=== PATIENT | female | born 1980 | race Caucasian/White ===

== ENCOUNTER 2019-04-20 16:13 | Inpatient (IN) | payer OTHER ==
[~2019-04-20] VITALS: Ht 165.1 cm; Wt 56.0 kg
[2019-04-20] VITALS (7 sets, daily range): BP systolic 100–111; BP diastolic 75–85
[2019-04-20] MEDS: ALBUTEROL SULF 0.083% NEB SOLN 3 ML NEB NEB SCH (00:40)
--- OUTSIDE RECORDS SUMMARY | 2019-04-20 16:17 | XMS REPORT ---
Author Author [facility] Address Unknown Phone Unavailable Care Team Providers Care Inflatable Buildings Laminator Name Role Phone MEKHI SALDIVAR Unavailable Unavailable Problems This patient has no known problems. Allergies, Adverse Reactions, Alerts This patient has no known allergies or adverse reactions. Medications This patient has no known medications. Results Test Description Test Time Test Comments Text Results Atomic Results Result Comments URINALYSIS W/ REFLEX URINE CULTURE 2019-04-08 09:12:00 COLOR (BEAKER) (test qjey=001) Yellow CLARITY (BEAKER) (test khtc=585) Clear SPECIFIC GRAVITY UA (BEAKER) (test wiyq=315) 1.026 1.001-1.035 PH UA (BEAKER) (test qsxx=522) 6.0 5.0-8.0 PROTEIN UA (BEAKER) (test sfqe=279) 10 mg/dL Negative GLUCOSE UA (BEAKER) (test sesp=793) Negative Negative KETONES UA (BEAKER) (test mxvs=369) Negative Negative BILIRUBIN UA (BEAKER) (test wwaw=615) Negative Negative BLOOD UA (BEAKER) (test iskt=808) Negative Negative NITRITE UA (BEAKER) (test pmhv=537) Negative Negative LEUKOCYTE ESTERASE UA (BEAKER) (test eoyz=123) Negative Negative UROBILINOGEN UA (BEAKER) (test zprj=729) 2.0 mg/dL 0.2-1.0 RBC UA (BEAKER) (test iwmk=316) < /HPF WBC UA (BEAKER) (test kmnw=287) < /HPF BACTERIA (BEAKER) (test eohc=042) Rare MUCUS (BEAKER) (test ycfe=2169) Occasional SQUAMOUS EPITHELIAL (BEAKER) (test trpl=755) 5 /HPF SOURCE(BEAKER) (test koqf=8420) Fructose Loader ID - [auto]Fructose Loader ID - hankBASIC METABOLIC [id number] 08:41:00* Test Item Value Reference Range Comments SODIUM (BEAKER) (test doox=945) 139 meq/L 136-145 POTASSIUM (BEAKER) (test qyxg=733) 4.4 meq/L 3.5-5.1 CHLORIDE (BEAKER) (test kzmd=770) 105 meq/L 98-107 CO2 (BEAKER) (test uyty=706) 28 meq/L 22-29 BLOOD UREA NITROGEN (BEAKER) (test wgph=350) 10 mg/dL 7-21 CREATININE (BEAKER) (test foae=877) 0.82 mg/dL 0.57-1.25 GLUCOSE RANDOM (BEAKER) (test kqbs=909) 97 mg/dL 70-105 CALCIUM (BEAKER) (test qjqf=079) 9.5 mg/dL 8.4-10.2 EGFR (BEAKER) (test dbkk=1795) INSUFFICIENT CLINICAL DATA TO CALCULATE ESTIMATED GFR. Fructose Loader ID Fede REINOSO [id number] 08:39:00* Test Item Value Reference Range Comments LIPASE (BEAKER) (test ksia=596) 9 U/L 8-78 Fructose Loader ID Fede REINOSO LHEPATIC FUNCTION [id number] 08:39:00* Test Item Value Reference Range Comments TOTAL PROTEIN (BEAKER) (test nzjp=796) 7.8 gm/dL 6.0-8.3 ALBUMIN (BEAKER) (test lysc=2512) 4.7 g/dL 3.5-5.0 BILIRUBIN TOTAL (BEAKER) (test naii=490) 0.7 mg/dL 0.2-1.2 BILIRUBIN DIRECT (BEAKER) (test rgjc=785) 0.3 mg/dL 0.1-0.5 ALKALINE PHOSPHATASE (BEAKER) (test rmly=612) 45 U/L 40-150 AST (SGOT) (BEAKER) (test hbwg=585) 17 U/L 5-34 ALT (SGPT) (BEAKER) (test mkzn=394) 16 U/L 6-55 Fructose Loader ID - KEMAR LPREGNANCY SCREEN, [id number] 08:37:00* Test Item Value Reference Range Comments TEST URINE (BEAKER) (test ltgo=107) Negative CBC W/PLT COUNT & AUTO [id number] 08:17:00* Test Item Value Reference Range Comments WHITE BLOOD CELL COUNT (BEAKER) (test oxjo=208) 4.9 K/ L 3.5-10.5 RED BLOOD CELL COUNT (BEAKER) (test lzks=638) 4.25 M/ L 3.93-5.22 HEMOGLOBIN (BEAKER) (test ddnr=403) 13.6 GM/DL 11.2-15.7 HEMATOCRIT (BEAKER) (test geid=698) 39.4 % 34.1-44.9 MEAN CORPUSCULAR VOLUME (BEAKER) (test urju=388) 92.7 fL 79.4-94.8 MEAN CORPUSCULAR HEMOGLOBIN (BEAKER) (test lbyr=798) 32.0 pg 25.6-32.2 MEAN CORPUSCULAR HEMOGLOBIN CONC (BEAKER) (test taen=044) 34.5 GM/DL 32.2-35.5 RED CELL DISTRIBUTION WIDTH (BEAKER) (test sgug=545) 12.2 % 11.7-14.4 PLATELET COUNT (BEAKER) (test pooe=991) 182 K/CU MM 150-450 MEAN PLATELET VOLUME (BEAKER) (test hfup=112) 10.4 fL 9.4-12.3 NUCLEATED RED BLOOD CELLS (BEAKER) (test qfxs=082) 0 /100 WBC 0-0 NEUTROPHILS RELATIVE PERCENT (BEAKER) (test axxj=313) 74 % LYMPHOCYTES RELATIVE PERCENT (BEAKER) (test eurt=828) 18 % MONOCYTES RELATIVE PERCENT (BEAKER) (test tpkf=905) 7 % EOSINOPHILS RELATIVE PERCENT (BEAKER) (test fudz=116) 0 % BASOPHILS RELATIVE PERCENT (BEAKER) (test nnaw=116) 0 % NEUTROPHILS ABSOLUTE COUNT (BEAKER) (test stlv=512) 3.66 K/ L 1.56-6.13 LYMPHOCYTES ABSOLUTE COUNT (BEAKER) (test ieki=506) 0.88 K/ L 1.18-3.74 MONOCYTES ABSOLUTE COUNT (BEAKER) (test uvpm=055) 0.32 K/ L 0.24-0.36 EOSINOPHILS ABSOLUTE COUNT (BEAKER) (test vvmy=577) 0.02 K/ L 0.04-0.36 BASOPHILS ABSOLUTE COUNT (BEAKER) (test amzx=700) 0.02 K/ L 0.01-0.08 IMMATURE GRANULOCYTES-RELATIVE PERCENT (BEAKER) (test tuqo=0697) 1 % 0-1
[2019-04-20] MEDS ORDERED: KETOROLAC TROMETHAMINE 30 MG/ML VIAL ONE (16:50)
[2019-04-20] MEDS ORDERED: LACTATED RINGER'S 1,000 ML ONE (16:50)
[2019-04-20] MEDS ORDERED: FAMOTIDINE 20 MG/2 ML VIAL IV STA (16:53)
[2019-04-20] MEDS ORDERED: ONDANSETRON HCL INJ 2MG/ML 2ML 2 MG/ML VIAL IV STA (16:53)
[2019-04-20] MEDS ORDERED: KETOROLAC TROMETHAMINE 30 MG/ML VIAL IV STA (16:53)
[2019-04-20] MEDS ORDERED: LACTATED RINGER'S 1,000 ML IV ONE (17:00)
[2019-04-20] MEDS ORDERED: AZITHROMYCIN 500MG/NS 250 ML 250 ML IV ONE (17:00)
[2019-04-20] MEDS ORDERED: CEFTRIAXONE SOD 2 GM/NS 100 ML 100 ML IV ONE (17:00)
[2019-04-20] MEDS ORDERED: ALBUTEROL/IPRATROPIUM 3 ML NEB NEB ONE (17:15)
[2019-04-20] MEDS ORDERED: ALBUTEROL/IPRATROPIUM 3 ML NEB ONE (17:15)
--- NOTE | 2019-04-20 17:25 | NUR ---
PT TO BE ADMITTED TO ICU AND TRANSFERED, PT AND FAMILY AWARE OF POC, PT VOICES NO COMPLAINTS AT THIS TIME, DR VICK HERE AND AT BEDSIDE FOR ADMISSION ORDERS,
--- NOTE | 2019-04-20 17:28 | Diagnostic Imaging Report ---
EXAMINATION: CXR 2 VIEW - HOPD INDICATION: Pneumonia COMPARISON: None FINDINGS: LINES/TUBES:None LUNGS:Right upper lobe patchy airspace opacity. The lungs are otherwise well inflated. PLEURA:No pleural effusion or pneumothorax. MEDIASTINUM:The cardiomediastinal silhouette appears normal in size and shape. BONES/SOFT TISSUES:No acute osseous injury. ABDOMEN:No free air under the diaphragm. IMPRESSION: Right upper lobe pneumonia. Signed by: Savi Mcbride MD on 04/20/2019 5:25 PM
[2019-04-20] MEDS ORDERED: CEFTRIAXONE SOD 1 GM/NS 50 ML 50 ML IV SCH (17:30)
--- NOTE | 2019-04-20 17:39 | NUR ---
[facility] CALLED FOR TRANSPORT WAIT TIME [address] [facility] FOR TRANSPORT 20MIN ETA
[2019-04-20] MEDS ORDERED: LEVOFLOXACIN 750MG/D5W 150ML 150 ML IV SCH (18:00)
--- NOTE | 2019-04-20 18:00 | NUR ---
REPORT TO SOLOMON STRATTON REPORT TO [facility] ALL QUESTIONS ANSWERED
--- NOTE | 2019-04-20 18:28 | History and Physical ---
CHIEF COMPLAINT: "I can't breathe." HISTORY OF PRESENT ILLNESS: This is a 38-year-old white woman, who presents to [facility] with a 3-day history of worsening cough and chest congestion. The patient states that on April 17, 2019, she went to a local urgent care and was diagnosed with influenza and was subsequently prescribed oral Tamiflu. The patient states that she began taking the Tamiflu immediately. Yesterday, one day prior to admission, on Friday, April 19, 2019, she went to another local emergency room and was told she had right-sided pneumonia, was started on oral antibiotics. The patient states the antibiotic was cefdinir. The patient states her shortness of breath, cough, and congestion only worsened, thus she came to [facility] emergency room today. In the emergency room, the patient was found to be tachycardic with heart rate of 130, temperature 104 degrees Fahrenheit taken orally. The patient's respiratory rate was 22. Blood pressure was 122/82. Oxygen saturation was 100% on room air. The patient had a chest film in the emergency room that did confirm right upper lobe pneumonia. Blood work was unremarkable, particularly white blood cell count was normal. Potassium was low at 3.5. The patient was admitted for further evaluation and treatment. Also in the emergency room patient's nasal swab was found to be Influenza B positive. REVIEW OF SYSTEMS: GENERAL: No fever or chills over the past few days. The patient's weight was stable. HEENT: No headaches. No visual changes. CARDIOVASCULAR/RESPIRATORY: Worsening shortness of breath, cough, and chest congestion over the past few days. GI: No nausea, vomiting, diarrhea, or constipation. : No UTI symptoms. NEUROMUSCULAR: No limb weakness or numbness, but the patient states that she has experienced Raynaud's in her hands intermittently over the last 2 years. The patient also states over the past 2 years she has had a rash on her hands. PAST MEDICAL HISTORY: 1. Persistent hand rash. 2. Raynaud's syndrome. HEALTH SERVICES DIRECTOR HISTORY: G3, P3. Her last was complicated by post shock because corticosteroids were not continued. PAST SURGICAL HISTORY: 1. section. 2. Appendectomy. 3. Left palm surgery to repair deep laceration. ALLERGIES: 1. CLARITHROMYCIN. FAMILY HISTORY: Noncontributory (no family history of connective tissue or rheumatologic diseases) . SOCIAL HISTORY: This woman is , lives with her . She has three small children. 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 No history of tobacco use. MEDICATIONS: None. PHYSICAL EXAMINATION: GENERAL: She is awake and fully oriented. She is slightly dyspneic, but does not appear to be in any obvious respiratory distress. VITAL SIGNS: Heart rate now is 110, respiratory rate is 22, oxygen saturation 97% on room air, temperature is 101.5 at this time. Blood pressure was 130/80. Height is 5 feet 5 inches, weight is 120 pounds, BMI 20. INTEGUMENT: Skin is warm and dry. No pallor, jaundice, diaphoresis. HEENT: Anicteric sclerae. Dry mucous membranes. NECK: Supple. CARDIOVASCULAR: Tachycardic rate, regular rhythm. LUNGS: The patient has coarse breath sounds bilaterally. ABDOMEN: Benign. Normal bowel sounds. Nontender. EXTREMITIES: No edema or deformity. The patient does have an erythematous rash on her hands. She also has whitish discoloration with alternating erythema on her fingers that does resemble Raynaud's syndrome. NEUROLOGIC: Intact. No gross deficits appreciated. DIAGNOSES: 1. Sepsis secondary to right-sided pneumonia. 2. Influenza B infection. 3. Raynaud syndrome, possible underlying connective tissue disease. PLAN: 1. Intravenous fluids. 2. Antipyretics. 3. Nebulized bronchodilators. 4. Blood cultures. 5. Intravenous antibiotics. 6. Tamiflu twice a day. 7. Admit to intensive care unit. 8. We will consult dumb waiter operator. I spent 45 minutes in the care of this intensive care unit patient. MD MILLICENT Cardona/AMNA /[id number] FIONA
[2019-04-20] MEDS: OSELTAMIVIR PHOSPHATE 75 MG CAP PO SCH (18:30)
[2019-04-20] MEDS: CEFTRIAXONE SOD 1 GM/NS 50 ML 50 ML IV SCH (18:30)
[2019-04-20] MEDS: SODIUM CHLORIDE 0.9% 1000ML 1,000 ML IV SCH (18:30)
[2019-04-20] MEDS ORDERED: ALBUTEROL/IPRATROPIUM 3 ML NEB NEB SCH (19:00)
[2019-04-20] MEDS ORDERED: ACETAMINOPHEN 325 MG TAB PO PRN ×3 (20:30→22:00)
[2019-04-20 21:26] LABS: CREATINE KINASE 99 IU/L (29-168)
--- NOTE | 2019-04-20 21:40 | NUR ---
Dr. Kalpesh skinner. aware of elevated HR, temp, and pt condition. Orders received.
[2019-04-20] MEDS: BENZONATATE 100 MG CAP PO SCH (22:21)
[2019-04-20] MEDS: VANCOMYCIN 1GM/NS 250 ML 250 ML IV SCH (23:08)
[2019-04-21] VITALS (21 sets, daily range): BP systolic 88–112; BP diastolic 70–87
[2019-04-21] MEDS ORDERED: DOXYCYCLINE 100MG/NS 100ML 100 ML IV SCH
[2019-04-21] MEDS: SODIUM CHLORIDE 0.9% 1000ML 1,000 ML IV SCH ×2 (01:41→08:00)
--- NOTE | 2019-04-21 03:20 | Consultation ---
DATE OF CONSULTATION: Pulmonary Consultation REASON FOR CONSULT: Shortness of breath. HISTORY OF PRESENT ILLNESS: Ms. Chu is a 38-year-old white female. She presented to the emergency room with a history of cough, fever, shortness of breath, fever as high as 103 since April 17, 2019. The patient went to Emergency Room twice and first time she was diagnosed with flu, was given Tamiflu, 2nd time she was given cefdinir for pneumonia. However, things got worse. Her fever never broke, so she decided to come to the emergency room. In the emergency room, she was tachycardic with a heart rate of 130s, temperature 104, and blood pressure 122/82. She is on oxygen, however, on room air, she is saturating 100%. She denies any complaints of chest pain, nausea, vomiting. No recent travel. REVIEW OF SYSTEMS: GENERAL: Denies fevers or chills. HEAD: Denies any head trauma. ENT: Denies any earache. CVS: Denies any chest pain. RESPIRATORY: Shortness of breath. GI: Denies any nausea or vomiting. The rest of the review of systems are negative except as in HPI. PAST MEDICAL HISTORY: There is a rash and question of Raynaud's, however she is not formally diagnosed. FAMILY AND SOCIAL HISTORY: She does not smoke, does not drink. She is . PHYSICAL EXAMINATION: VITAL SIGNS: T-max of 101.5, pulse of 100, blood pressure 105/80, respiratory rate of 18, and O2 saturation 98% on room air. HEENT: Head atraumatic, normocephalic. NECK: Supple. CHEST: Crackles on the base, otherwise clear. HEART: S1, S2 audible. ABDOMEN: Soft. EXTREMITIES: No pedal edema. NEUROLOGICALLY: She is awake and alert. No focal neurologic deficit. LABORATORY DATA: White count of 6.1, hemoglobin 12.9. Sodium 135, potassium 3.6, chloride 97, BUN 8, creatinine 0.5. Chest x-ray, I reviewed the images which showing right upper lobe pneumonia and I have reviewed the images. ASSESSMENT: Ms. Chu is a 38-year-old female, came in with sepsis due to pneumonia, post influenza. Current problem: 1. Post influenza pneumonia. 2. Influenza. 3. Acute hypoxic. 4. Sepsis. PLAN: I will add vancomycin to IV Rocephin and change the Levaquin to doxycycline for atypical coverage. Post influenza, patient can be prone to staph pneumonia. Oxygen as needed to keep the O2 saturation more than or equal to 92%. The patient is receiving IV fluids. Symptomatic treatment for fever. I will also do a CT chest without contrast to further evaluate the lung parenchyma. Thank you for this consult. Critical care time spent 50 minutes. MD WILL Franco/MODL /[id number]
[2019-04-21] MEDS: ALBUTEROL SULF 0.083% NEB SOLN 3 ML NEB NEB SCH ×5 (03:50→19:05)
[2019-04-21] MEDS: CEFTRIAXONE SOD 1 GM/NS 50 ML 50 ML IV SCH ×2 (05:00→17:06)
[2019-04-21 05:14] LABS: HEMATOCRIT 31.4 % (34.2-44.1); HEMOGLOBIN 11.1 g/dL (12.0-16.0); LYMPHOCYTES # (AUTO) 0.7 (1.0-3.2); LYMPHOCYTES % 15.9 % (18.0-39.1); MEAN CORPUSCULAR HEMOGLOBIN 31.6 pg (28-32); MEAN CORPUSCULAR HGB CONC 35.4 g/dL (31-35); MEAN CORPUSCULAR VOLUME 89.5 fL (81-99); MONOCYTES # (AUTO) 0.3 (0.2-0.8); MONOCYTES % 7.7 % (4.4-11.3); NEUTROPHILS # (AUTO) 3.3 (2.1-6.9); NEUTROPHILS % 75.9 % (38.7-80.0); PLATELET COUNT 104 x10e3/uL (140-360); RED BLOOD COUNT 3.51 x10e6/uL (3.6-5.1)
[2019-04-21 05:28] LABS: CREATINE KINASE 187 IU/L (29-168)
[2019-04-21 05:55] LABS: ALANINE AMINOTRANSFERASE 21 IU/L (0-55); ALBUMIN 3.3 g/dL (3.5-5.0); ALKALINE PHOSPHATASE 47 IU/L (40-150); ANION GAP 13.4 mmol/L (8-16); BLOOD UREA NITROGEN 5 mg/dL (7-26); BUN/CREATININE RATIO 7 (6-25); CALCIUM 8.1 mg/dL (8.4-10.2); CARBON DIOXIDE 22 mmol/L (22-29); CHLORIDE 105 mmol/L (98-107); EST GLOMERULAR FILTRATION RATE > 60 ML/MIN (60-); GLUCOSE 99 mg/dL (74-118); POTASSIUM 3.4 mmol/L (3.5-5.1); SODIUM 137 mmol/L (136-145)
[2019-04-21] MEDS ORDERED: POTASSIUM CHLORIDE 10MEQ EA PO ONE ×2 (08:45)
--- NOTE | 2019-04-21 08:48 | Diagnostic Imaging Report ---
EXAMINATION: CHEST SINGLE (PORTABLE) INDICATION: Right-sided pneumonia. COMPARISON: Chest radiograph 04/20/2019. FINDINGS: TUBES and LINES: None. LUNGS: Lungs are well inflated. Slightly increased consolidative opacity in the right upper lobe. No evidence of pulmonary edema. PLEURA: No pleural effusion or pneumothorax. HEART AND MEDIASTINUM: The cardiomediastinal silhouette is unremarkable. BONES AND SOFT TISSUES: No acute osseous abnormality. UPPER ABDOMEN: No free air under the diaphragm. IMPRESSION: Right upper lobe pneumonia with slightly increased consolidation. Signed by: Dr. Maria Antonia Wilkinson MD on 04/21/2019 8:45 AM
[2019-04-21] MEDS: BENZONATATE 100 MG CAP PO SCH ×3 (09:18→20:17)
[2019-04-21] MEDS: OSELTAMIVIR PHOSPHATE 75 MG CAP PO SCH ×2 (09:18→17:06)
--- NOTE | 2019-04-21 09:46 | Progress Note ---
DATE: 04/21/2019 CHIEF COMPLAINT: "I feel better." HISTORY OF PRESENT ILLNESS: A 38-year-old white woman, who has a primary treating diagnosis is sepsis, secondary to right upper lobe pneumonia and influenza B infection. The patient states she does feel better today. Overnight, the patient was slightly hypotensive and she was still febrile. This morning at 8 o'clock, temperature was 98.5, but at 5 in the morning was 100.5. The patient is still tachycardic. The patient denies any chest pain or tightness. The patient states she is slightly short of breath, but feels better. She is still coughing. A chest x-ray this morning reveals right upper lobe pneumonia with slightly increased consolidation. Also today, the patient's potassium is 3.4. The patient's BUN and creatinine are 5 and 0.7 respectively. White blood cell count today is 4300 with 75% segmenters. Hemoglobin 11.1 g/dL. Platelet count 104,000. REVIEW OF SYSTEMS: As per HPI. PHYSICAL EXAMINATION: GENERAL: She is awake, alert, and fully oriented. She does not appear to be in any respiratory distress. VITAL SIGNS: Blood pressure is 100/78, pulse is 110, respiratory rate 22, and oxygen saturation 96% on room air. Temperature at this time is 98.5, but at 5 A.M. this morning is 100.5, BMI is 20. Height 5 feet 5 inches, weight 123 pounds. INTEGUMENT: Skin is warm and dry. No pallor, jaundice, or diaphoresis. HEENT: Anicteric sclerae. Moist mucous membranes. NECK: Supple. CARDIOVASCULAR: Tachycardic rate with regular rhythm. LUNGS: The patient has crackles in the bilateral upper lung cadena. ABDOMEN: Benign. EXTREMITIES: No edema or deformity. The patient appears to have Raynaud's syndrome in her fingers. NEUROLOGIC: Intact. DIAGNOSES: 1. Sepsis, secondary to right upper lobe pneumonia, resolving. 2. Right upper lobe pneumonia. 3. Mild pancytopenia, secondary to sepsis. 4. Influenza B infection. PLAN: 1. Continue oral Tamiflu for the patient's influenza. 2. We will change doxycycline to intravenous azithromycin because she states that the doxycycline is hurting her arm. 3. Agree with intravenous vancomycin since the patient could have Staphylococcus aureus pneumonia. 4. Continue intravenous ceftriaxone. 5. Proceed with CT of the chest as ordered by group practice pediatrician. 6. Replete potassium level. 7. Continue nebulized bronchodilators. 8. Continue intravenous fluids to treat the patient's sepsis. I spent 40 minutes in the care of this intensive care unit patient. MD MILLICENT Cardona/AMNA /[id number] FIONA
[2019-04-21] MEDS: AZITHROMYCIN 500MG/NS 250 ML 250 ML IV SCH (10:37)
[2019-04-21] MEDS ORDERED: DIPHENHYDRAMINE HCL INJ 50 MG/ML VIAL IV PRN (10:45)
--- NOTE | 2019-04-21 10:49 | Diagnostic Imaging Report ---
EXAM: CT Chest WITHOUT intravenous contrast 04/21/2019 8:00 AM INDICATION: Pneumonia COMPARISON: Chest radiograph 04/21/2019 TECHNIQUE: Chest was scanned utilizing a multidetector helical scanner from the lung apex through the level of the adrenal glands without administration of IV contrast. Coronal and sagittal reformations were obtained. Routine protocol was performed. IV CONTRAST: None RADIATION DOSE: Total DLP: 321.7 mGy*cm. Dose modulation, iterative reconstruction, and/or weight based adjustment of the mA/kV was utilized to reduce the radiation dose to as low as reasonably achievable. COMPLICATIONS: None FINDINGS: LINES/ TUBES: None. LUNGS AND AIRWAYS: The central airways are patent. Multifocal right upper lobe consolidation and bronchial wall thickening. No suspicious pulmonary nodules. PLEURA: The pleural spaces are clear. HEART AND MEDIASTINUM: The thyroid gland is normal. No mediastinal, hilar or axillary lymphadenopathy. The heart is normal in size.. There is no pericardial effusion. UPPER ABDOMEN: No acute findings. 3.5 cm left upper pole renal cyst. BONES: No acute osseous injury. SOFT TISSUES: Unremarkable. IMPRESSION: Right upper lobe multifocal consolidation, consistent with right upper lobe pneumonia. Signed by: Savi Mcbride MD on 04/21/2019 10:46 AM
[2019-04-21] MEDS: VANCOMYCIN 1GM/NS 250 ML 250 ML IV SCH ×2 (12:00→23:16)
[2019-04-21 14:16] LABS: CREATINE KINASE MB 2.4 ng/mL (0-5.0)
[2019-04-21] MEDS: HYDROCODONE/APAP 5MG-325MG TAB PO PRN ×2 (15:30→20:18)
--- NOTE | 2019-04-21 19:00 | NUR ---
Bedside report received from Mitali Ramirez RN. Pt is AAOx4 on room air, reports no pain or discomfort at this time, no signs of distress noted. Bed in lowest and locked position, call light in reach of the pt. Care plan reviewed with pt input/questions answered.
[2019-04-21] MEDS ORDERED: LEVALBUTEROL HCL SOLN NEBU 0.63 MG/3 ML NEB INH PRN (23:00)
[2019-04-21] MEDS: LEVALBUTEROL HCL SOLN NEBU 0.63 MG/3 ML NEB INH SCH (23:55)
[2019-04-22] VITALS (7 sets, daily range): BP systolic 106–114; BP diastolic 75–90
--- NOTE | 2019-04-22 01:45 | NUR ---
Pt ambulated to the restroom and back to bed without event.
[2019-04-22] MEDS: LEVALBUTEROL HCL SOLN NEBU 0.63 MG/3 ML NEB INH SCH ×3 (03:50→11:16)
[2019-04-22 05:34] LABS: BASOPHILS % 0.3 % (0.0-1.0); EOSINOPHILS % 0.3 % (0.0-6.0); HEMATOCRIT 30.1 % (34.2-44.1); HEMOGLOBIN 10.5 g/dL (12.0-16.0); LYMPHOCYTES # (AUTO) 0.8 (1.0-3.2); LYMPHOCYTES % 29.4 % (18.0-39.1); MEAN CORPUSCULAR HEMOGLOBIN 31.7 pg (28-32); MEAN CORPUSCULAR HGB CONC 34.9 g/dL (31-35); MEAN CORPUSCULAR VOLUME 90.9 fL (81-99); MONOCYTES # (AUTO) 0.3 (0.2-0.8); MONOCYTES % 9.4 % (4.4-11.3); NEUTROPHILS # (AUTO) 1.7 (2.1-6.9); NEUTROPHILS % 59.9 % (38.7-80.0); PLATELET COUNT 119 x10e3/uL (140-360); RED BLOOD COUNT 3.31 x10e6/uL (3.6-5.1); RED CELL DISTRIBUTION WIDTH 12.1 % (11.7-14.4)
[2019-04-22] MEDS: CEFTRIAXONE SOD 1 GM/NS 50 ML 50 ML IV SCH (06:00)
[2019-04-22 06:12] LABS: ALANINE AMINOTRANSFERASE 20 IU/L (0-55); ALBUMIN 3.1 g/dL (3.5-5.0); ALBUMIN/GLOBULIN RATIO 0.9 (0.8-2.0); ALKALINE PHOSPHATASE 49 IU/L (40-150); ANION GAP 11.8 mmol/L (8-16); BLOOD UREA NITROGEN < 5 mg/dL (7-26); CALCIUM 8.4 mg/dL (8.4-10.2); CARBON DIOXIDE 25 mmol/L (22-29); CHLORIDE 104 mmol/L (98-107); CREATININE, SERUM 0.68 mg/dL (0.57-1.11); EST GLOMERULAR FILTRATION RATE > 60 ML/MIN (60-); GLUCOSE 84 mg/dL (74-118); POTASSIUM 3.8 mmol/L (3.5-5.1); SODIUM 137 mmol/L (136-145)
[2019-04-22 06:15] LABS: BUN/CREATININE RATIO 7 (6-25)
--- NOTE | 2019-04-22 07:00 | NUR ---
Bedside report given to Mitali Ramirez RN. Care plan reviewed. Pt reports discomfort to abdominal muscles from coughing. Mitali STRATTON to administer prn pain medications as orders.
[2019-04-22] MEDS: HYDROCODONE/APAP 5MG-325MG TAB PO PRN (07:01)
[2019-04-22] MEDS: BENZONATATE 100 MG CAP PO SCH (08:46)
[2019-04-22] MEDS: AZITHROMYCIN 500MG/NS 250 ML 250 ML IV SCH (08:46)
[2019-04-22] MEDS: OSELTAMIVIR PHOSPHATE 75 MG CAP PO SCH (08:46)
--- NOTE | 2019-04-22 09:26 | Diagnostic Imaging Report ---
EXAMINATION: CHEST SINGLE (PORTABLE) INDICATION: Pneumonia COMPARISON: None FINDINGS: LINES/TUBES:EKG leads overlie the chest. LUNGS:The lungs are well-inflated. Unchanged right upper lobe consolidation. PLEURA:No pleural effusion or pneumothorax. MEDIASTINUM:The cardiomediastinal silhouette appears normal in size and shape. BONES/SOFT TISSUES:No acute osseous injury. ABDOMEN:No free air under the diaphragm. IMPRESSION: Unchanged right upper lobe pneumonia. Signed by: Savi Mcbride MD on 04/22/2019 9:24 AM
--- NOTE | 2019-04-22 10:11 | Progress Note ---
DATE: 04/22/2019 CHIEF COMPLAINT/HISTORY OF PRESENT ILLNESS: This is a 38-year-old white woman, whose primary treating diagnosis is sepsis secondary to right upper lobe pneumonia. She also has underlying influenza B infection that was confirmed by nasal swab on this admission. The patient's sepsis has resolved though. Today's white blood cell count is 2800 with 60% segmented neutrophils. Hemoglobin 10.5 g/dL. Platelet count is 119,000. The patient's serum chemistries are all within normal limits. Chest film performed today confirmed right upper lobe pneumonia. Moreover, the patient underwent a CT of the chest yesterday without contrast that confirmed the right upper lobe multifocal consolidation. Otherwise, CT of chest did not reveal any acute findings. Of note, the CT of chest did reveal 3.5 cm left upper pole simple renal cyst. The CT of the chest did not reveal any suspicious pulmonary nodules or lymphadenopathy. REVIEW OF SYSTEMS: As per HPI. PHYSICAL EXAMINATION: GENERAL: She is awake. She is alert. She is fully oriented. She is very pleasant and cooperative with exam. VITAL SIGNS: Blood pressure is 110/82, pulse is 94, respiratory rate 16, oxygen 98% on room air, and temp 98.4. BMI is 20. Height 5 feet 5 inches, weight 123 pounds. INTEGUMENT: Skin is warm and dry. No pallor, jaundice, or diaphoresis. HEENT: Anicteric sclerae. Moist mucous membranes. NECK: Supple. CARDIOVASCULAR: Distant heart sounds. Tachycardic. Regular rhythm. LUNGS: Faint crackles in the bilateral lung cadena. ABDOMEN: Benign. EXTREMITIES: No edema or deformity. NEUROLOGIC: Intact. DIAGNOSES: 1. Sepsis secondary to right upper lobe pneumonia, resolved. 2. Right upper lobe pneumonia. 3. Influenza B infection. 4. Pancytopenia, likely secondary to viral infection. PLAN: 1. Follow complete blood count. 2. Follow sputum cultures. 3. Continue intravenous vancomycin, ceftriaxone, and azithromycin. 4. I discussed case with the ceramic painter and we may discharge the patient home if she continues to be fever free. I spent 40 minutes in the care of this patient. MD MILLICENT Cardona/AMNA /[id number] FIONA
--- NOTE | 2019-04-22 10:16 | Discharge Summary ---
ADMITTING DIAGNOSES: 1. Sepsis secondary to right upper lobe pneumonia. 2. Influenza B infection. 3. Pancytopenia secondary to sepsis. DISCHARGE DIAGNOSES: 1. Right upper lobe pneumonia, likely Staphylococcus aureus, resolving. 2. Sepsis secondary to right upper lobe pneumonia, resolved. 3. Pancytopenia secondary to viral infection. HOSPITAL COURSE: A 38-year-old white woman, who was initially admitted to [facility] with diagnosis of sepsis secondary to right upper lobe pneumonia. The patient was also found to be slightly pancytopenic during this hospitalization. The patient improved clinically with intravenous antibiotics namely ceftriaxone, vancomycin and azithromycin. On admission, patient underwent nasal swab that was positive for influenza B antigen. Thus, the patient was started on oral Tamiflu, which she tolerated quite well. Her hospitalization was unremarkable. On the day of discharge, the preliminary sputum Gram stain did reveal gram-positive cocci in pairs, but the culture was still pending. The patient's condition on discharge was stable. Also during this hospitalization, patient underwent a CT of the chest, which revealed right upper lobe multilobar consolidation consistent with right upper lobe pneumonia. Also, the CT of the chest did reveal a 3.5 cm left upper pole simple renal cyst. DISCHARGE MEDICATIONS: 1. Bactrim DS 1 p.o. b.i.d. for 7 days. 2. Levofloxacin 750 mg daily for 7 days. 3. Tamiflu 75 mg p.o. b.i.d. (the patient has only one day left of this regimen). 4. Acetaminophen 1000 mg every 6 hours for fever or body aches. FOLLOWUP INSTRUCTIONS: The patient is instructed to follow up with her primary care physician within the next 7 to 10 days and on that visit, she should undergo a complete blood count to assess for any worsening pancytopenia. Also, the left upper pole simple renal cyst was disclosed to the patient. MD MILLICENT Cardona/AMNA /[id number] cc: Leonard Posey MD MTDD
[2019-04-22] MEDS: VANCOMYCIN 1GM/NS 250 ML 250 ML IV SCH (10:51)
--- NOTE | 2019-04-22 14:28 | NUR ---
Patient discharged home via private vehicle in the care of her . Agrees to f/u with PCP and Dr Posey. Agrees to fill Rx meds and take as directed.
== END 2019-04-22 14:05 | disposition home or self-care (01) | DRG 871 ==
LOC: FSED 16:13 → ERHOLD 17:33 → ICU 18:20
PROVIDERS: ADMIT Internal Medicine; ATTEND Internal Medicine
DX: A41.01 Sepsis due to Methicillin susceptible Staphylococcus aureus (principal); J10.08 Influenza due to other identified influenza virus with other specified pneumonia; J15.211 Pneumonia due to Methicillin susceptible Staphylococcus aureus; D61.818 Other pancytopenia; I73.00 Raynaud's syndrome without gangrene; E86.0 Dehydration; N28.1 Cyst of kidney, acquired; R09.02 Hypoxemia
CPT/HCPCS: 36415; 71045; 71046; 71250; 80048; 80053; 80076; 81003; 81025; 82550; 82553; 84484; 85025; 87040; 87070; 87205; 94640; 99284; J0456; J0696; J1885; J2405; J3370; J7030; J7121